=== PATIENT | male | born 1960 | race Hispanic/Latino ===

== ENCOUNTER 2017-12-10 13:24 | Inpatient (IN) | payer BC ==
[2017-12-10 14:30] LABS: #Basophils 0.1 thou/uL (0.0-0.2); #Eosinphils 0.1 thou/uL (0.0-0.7); #Lymphocytes 1.7 thou/uL (1.20-3.40); #Monocytes 0.7 thou/uL (0.11-0.59); #Neutrophils 9.3 thou/uL (1.40-6.50); %Basophils 0.6 % (0.0-1.0); %Eosinophils 1.1 % (0.0-10.0); %Lymphocytes 14.4 % (21.0-51.0); %Monocytes 6.1 % (0.0-10.0); %Neutrophils 77.9 % (42.0-75.0); Hemoglobin 15.2 g/dL (14.0-18.0); Mean Corpuscular HGB CONC 34.2 g/dL (32.0-36.0); Mean Corpuscular Hemoglobin 30.8 pg (27.0-31.0); Mean Corpuscular Volume 90.3 fl (80.0-94.0); Platelet Count 243 thou/uL (130-400); RBC Distribution Width 12.4 % (11.5-14.5); Red Blood Cell (RBC) Count 4.93 mill/uL (4.70-6.10); White Blood Cell (WBC) Count 11.9 thou/uL (4.8-10.8)
[2017-12-10 14:55] LABS: CKMB 3.6 ng/mL (0-6.6); Troponin I 0.234 ng/mL (< 0.028)
[2017-12-10 14:57] LABS: ALT (SGPT) 14 U/L (8-55); AST (SGOT) 14 U/L (5-34); Albumin 4.1 g/dL (3.5-5.0); Alcohol Less than 10 mg/dL (Less than 10); Alkaline Phosphatase 86 U/L (40-150); Anion Gap 15 mmol/L (10-20); BUN (Urea Nitrogen) 19 mg/dL (8.4-25.7); Bilirubin, Total 0.8 mg/dL (0.2-1.2); Calc. Creatinine Clearance 0 mL/min (70-130); Calcium 9.1 mg/dL (7.8-10.44); Carbon Dioxide 20 mmol/L (22-29); Chloride 106 mmol/L (98-107); Estimated GFR-MDRD 69; Globulin 2.8 g/dL (2.4-3.5); Glucose 163 mg/dL (70-105); Protein, Total 6.9 g/dL (6.0-8.3); Sodium 137 mmol/L (136-145)
[2017-12-10] MEDS ORDERED: ISOVUE-370 76%-LOCM 1 ML ONE (15:31)
--- NOTE | 2017-12-10 15:36 | ULT ---
LEFT LOWER EXTREMITY VENOUS DOPPLER: Date: 12-10-17 Provided Clinical History: Left leg edema. FINDINGS: Grayscale and color doppler sonography with spectral analysis was performed of the left common femora l, femoral, popliteal, posterior tibial, greater saphenous, and profunda femoral veins demonstrating a normal sonographic appearance to each. IMPRESSION: No sonographic evidence for left lower extremity deep venous thrombosis. POS: RAYMON
--- NOTE | 2017-12-10 16:06 | CT ---
CT BRAIN: Date: 12-10-17 Provided Clinical History: Syncope. FINDINGS: The ventricular system appears normal in size and morphology. There is no evidence for intracranial h emorrhage or mass effect. There are numerous foci of gas seen within the soft tissues of the right ma sseter and temporalis musculature. Less conspicuous changes are seen involving the left masseter and temporalis musculature as well as within the anterior frontal scalp. Small amount of gas is seen with in the epidural space posterior to the anterior aspect of the foramen magnum. The extracranial soft t issues and osseous structures demonstrate an otherwise unremarkable CT appearance. IMPRESSION: 1. No evidence for intracranial hemorrhage or mass effect. 2. Prominent soft tissue gas involving primarily the right masseter musculature of uncertain etiology and significance. Correlation with a CT of the soft tissues of the neck may be useful for further ev aluation as clinically indicated. POS: RAYMON
[2017-12-10 16:12] LABS: INR-International Normal Ratio 1.1; PTT 28.8 SEC (22.9-36.1); Prothrombin Time 14.4 SEC (12.0-14.7)
--- NOTE | 2017-12-10 16:42 | CT ---
CT PULMONARY ANGIOGRAM WITH IV CONTRAST WITH 3D MIP RECONSTRUCTIONS: Date: 12-10-17 Provided Clinical History: Dyspnea. FINDINGS: There are innumerable filling defects throughout the pulmonary arterial system bilaterally including near occlusive thrombus of the right distal main pulmonary artery. There is associated prominent bone deformity of the intervertebral septum, compatible with elevated pulmonary arterial pressures. The heart, pericardium, great vessel appear otherwise unremarkable. The lungs are free of significant opacity. The aorta appears patent and of normal caliber. No pleural fluid or pneumothorax apparent. The visualized portions of the upper abdomen demonstrate no significant abnormality. Tiny hypodensiti es in the liver are too small to definitely characterize but statistically reflect cysts. The osseous structures demonstrate no concerning lytic or blastic lesions. IMPRESSION: Positive examination for bilateral pulmonary emboli with associated RV strain. Findings communicated to Dr. Ribeiro in the Emergency Department at 3:56 p.m. 12-10-17. Code CR POS: RAYMON
--- NOTE | 2017-12-10 18:01 | PDOC.FPRHP ---
- History of Present Illness Chief Complaint: Passing out History of Present Illness: 57 yo with hx of venous issues in leg and family hx of blood clots who presents SOB after passing out at work. He denies leg pain this week but his L leg is always kind of swollen. He was feeling normal and then he passed out. after coming to, he felt SOB. denies chest pain or facial pain. no back pain. no palpitations. ED Course: recieved TPA after CTA with R heart strain. - Allergies/Adverse Reactions Allergies Allergy/AdvReac Type Severity Reaction Status Date / Time No Known Allergies Allergy Unverified 12/10/17 18:43 - Home Medications Medication Instructions Recorded Confirmed Type No Known [No Known] 12/10/17 12/10/17 History - History PMHx: Venous insufficiency, especially in L leg PSHx: Venous procedure to L leg. Otherwise patient not sure why it was done FHx: aunt of PE, had multiple clotting events. Patient: current smoker for 20 years, denies etoh and recreational drugs. - Review of Systems General: denies: fever/chills, weight/appetite/sleep changes, night sweats Eyes: denies: eye pain, vision changes ENT: denies: nasal congestion, rhinorrhea Respiratory: reports: shortness of breath, exercise intolerance. denies: cough , congestion Cardiovascular: denies: chest pain, palpitation, edema, paroxysmal nocturnal dyspnea Gastrointestinal: denies: nausea, vomiting, diarrhea, constipation Genitourinary: denies: incontinence, dysuria Skin: denies: rashes, lesions, jaundice Musculoskeletal: denies: pain, tenderness Neurological: reports: syncope. denies: numbness, seizure Psychological: denies: anxiety, depression - Vital signs BP: 134/86 HR: 95 RR: 28 Tmax: 98.6 Pox: 96% on 3L Wt: 122kg - Physical Exam Constitutional: NAD, awake, alert and oriented, well developed HEENT: normocephalic and atraumatic, PERRLA, EOMI, conjunctiva clear, no scleral icterus, grossly normal vision, grossly normal hearing, oropharynx clear , good dention -HEENT: No pain or tenderness around face or with movements. Neck: supple, FROM Chest: no-tender to palpation Heart: RRR, normal S1/S2, no murmurs/rubs/gallops Lungs: CTAB, no respiratory distress, good air movement, no rales/rhonchi, no wheezing, no retractions -Lungs: Mild increased WOB, tachypnea Abdomen: soft, non-tender Musculoskeletal: normal structure, normal tone Neurological: no focal deficit, CN II-XII intact Skin: no rash/lesions, good turgor Heme/Lymphatic: no unusual bruising or bleeding, no purpura Psychiatric: normal mood and affect, good judgment and insight FMR H&P: Results - Labs Result Diagrams: 12/10/17 14:23 12/10/17 14:23 Lab results: WBC 11.9 thou/uL (4.8-10.8) H 12/10/17 14:23 Hgb 15.2 g/dL (14.0-18.0) 12/10/17 14:23 Hct 44.5 % (42.0-52.0) 12/10/17 14:23 MCV 90.3 fl (80.0-94.0) 12/10/17 14:23 Plt Count 243 thou/uL (130-400) 12/10/17 14:23 Neutrophils % 77.9 % (42.0-75.0) H 12/10/17 14:23 Sodium 137 mmol/L (136-145) 12/10/17 14:23 Potassium 4.0 mmol/L (3.5-5.1) 12/10/17 14:23 Chloride 106 mmol/L (98-107) 12/10/17 14:23 Carbon Dioxide 20 mmol/L (22-29) L 12/10/17 14:23 BUN 19 mg/dL (8.4-25.7) 12/10/17 14:23 Creatinine 1.10 mg/dL (0.6-1.3) 12/10/17 14:23 Glucose 163 mg/dL (70-105) H 12/10/17 14:23 Calcium 9.1 mg/dL (7.8-10.44) 12/10/17 14:23 Total Bilirubin 0.8 mg/dL (0.2-1.2) 12/10/17 14:23 AST 14 U/L (5-34) 12/10/17 14:23 ALT 14 U/L (8-55) 12/10/17 14:23 Alkaline Phosphatase 86 U/L (40-150) 12/10/17 14:23 CK-MB (CK-2) 3.6 ng/mL (0-6.6) 12/10/17 14:23 Serum Total Protein 6.9 g/dL (6.0-8.3) 12/10/17 14:23 Albumin 4.1 g/dL (3.5-5.0) 12/10/17 14:23 Laboratory Tests 12/10/17 12/10/17 14:23 16:46 Troponin I 0.234 H 0.330 H* - EKG Interpretation EKG: NSR. non specific T wave changes in V1-2. No ST elevations or depressions - Radiology Interpretation CT scan - chest Status: image reviewed by me, report reviewed by me Additional comment: Bilateral PE, no pneumothorax CT scan - head Status: image reviewed by me, report reviewed by me Additional comment: NAD, but R sided masseter gas in muscle US - venous Status: report reviewed by me Additional comment: L leg negative for DVT FMR H&P: A/P - Problem List (1) Bilateral pulmonary embolism Current Visit: Yes Status: Acute Priority: High Code(s): I26.99 - OTHER PULMONARY EMBOLISM WITHOUT ACUTE COR PULMONALE (2) Right heart failure Current Visit: Yes Status: Suspected Qualifiers: Heart failure chronicity: acute Qualified Code(s): I50.811 - Acute right heart failure (3) Received intravenous tissue plasminogen activator (t-PA) in emergency department Current Visit: Yes Status: Acute Code(s): Z92.82 - S/P ADMN TPA IN DIFF FAC W/N LAST 24 HR BEF ADM TO CRNT FAC - Plan 1. Bilateral Proximal PE causing R heart strain- Patient did not become hypotensive but because of R heart strain, TPA was administered and protocol put in place. Patient has done well since and vitals have improved 2/2 to treatment. Will continue supportive care until 24 hours after TPA was given, then we will initiate anticoagulation. Left extremity doppler negative. Will order Right. 2. R heart strain- causing indeterminate troponins. Because of TPA, blood draws are relative contraindication and all clinical signs point to PE rather than ACS. Will repeat after 24 hours has stopped. Also will order ECHO 3. Family hx of blood clots- once we can draw labs again, will work up for inherited coagulopathies. 4. tobacco abuse- will funeral prearrangement counselor to quit. Disposition/LOS: LOS estimated 4 days. CCU Attending Addendum - Attending Addendum Date/Time: 12/10/172037 I personally evaluated the patient and discussed the management with Dr. Chacon at time of admission. I agree with the History, Examination, Assessment and Plan documented above with any addition or exceptions noted below. Patient is stable in CCU. HR is now normal. Air is masseter is unusual. Masseters nontender, no erythema or induration. Etiology unclear. Will follow clinically.
[2017-12-10 18:46] VITALS: BMI 41.2
[2017-12-10] MEDS ORDERED: Ondansetron ODT 4 MG TAB SL PRN (18:47)
[2017-12-10] MEDS ORDERED: Ondansetron HCl/PF 4 MG/2 ML Vial IVP PRN (18:47)
[2017-12-10] MEDS: Sodium Chloride 0.9% 1,000 ML IV SCH (19:47)
--- NOTE | 2017-12-10 22:35 | CON ---
DATE OF CONSULTATION: 12/10/2017 SERVICE: Pulmonary medicine. REASON FOR CONSULT: Pulmonary embolism. HISTORY OF PRESENT ILLNESS: Patient is a 57-year-old white male with past medical history significant for nothing. He was in his usual state of health until yesterday. He started feeling a little bit off. Otherwise, he continued on his day. At work today at 1:00, he abruptly felt short of breath, and developed some pleuritic chest discomfort. He was getting lightheaded. This was progressive very abruptly. As such, he presented to the emergency department. CT of the chest demonstrated a large pulmonary embolism. There were signs of right-heart strain. The patient was having marginal blood pressures and was threatening to syncopize. As such, the decision was made to give him tPA, after we excluded the possibility of contraindications. PAST MEDICAL HISTORY: 1. Chronic venous insufficiency. 2. Pulmonary embolism. PAST SURGICAL HISTORY: Vein procedure to the left leg. FAMILY HISTORY: Noncontributory. SOCIAL HISTORY: He smokes a pack a day and has done so far over 20 years. He denies any alcohol or illicit drug use. He has no exposure to chemicals, dust, asbestos, or tuberculosis. He has lost 30 pounds over the past year by walking 30 minutes on a daily basis. This has been a steady decline in weight. ALLERGIES: No known drug allergies. MEDICATIONS: List of his inpatient medications were reviewed. No specific updates were made at this time. REVIEW OF SYSTEMS: General, head, ears, eyes, nose, throat, cardiovascular, respiratory, GI, , musculoskeletal, neurologic, and skin is negative except as mentioned in the HPI. PHYSICAL EXAMINATION: VITAL SIGNS: Afebrile, pulse 74, blood pressure 140/88, respirations 20, saturation 100% now on room air. GENERAL: Patient is awake and alert, no apparent distress. LUNGS: Decent air entry bilaterally with no prolonged expiratory phase. HEART: Normal rate, regular. ABDOMEN: Soft, nontender, nondistended. Bowel sounds positive. MUSCULOSKELETAL: No cyanosis or clubbing. No pitting in the bilateral lower extremities. NEUROLOGIC: Grossly nonfocal. LABORATORY DATA: WBC 11.9, hemoglobin 15.2, platelets 243,000. INR 1.1. D- dimer 5.8. Troponin 0.48 and gently up trending. Basic metabolic profile and liver function studies are unremarkable otherwise. Plasma alcohol is below 10. IMAGIN. CTA of the chest demonstrates impressive pulmonary embolism. Pleural thickening of the right lung. There is reflux of contrast into the inferior vena cava. The right ventricle is dilated as is the right atrium. The left ventricle appears to be underfilled. 2. Ultrasound of bilateral lower extremities demonstrates no evidence for DVT. 3. CT of the brain demonstrates no acute intracranial abnormality. ASSESSMENT: 1. Acute submassive pulmonary embolism. 2. Right ventricular heart strain. 3. Non-ST elevation myocardial infarction secondary to pulmonary embolism. 4. Acute hypoxic respiratory failure, resolved. 5. Obstructive sleep apnea, strongly suspected. PLAN: The patient has already received his tPA and is feeling much improved. As such, I will start him on anticoagulation in 6 hours. The first thing would be Lovenox. If he does well through the night, we can consider switching over to direct oral anticoagulant. I would certainly like for him to follow up with me in clinic in the outpatient setting, so that we can get him enrolled or get him scheduled for an outpatient polysomnogram. 70 minutes have been devoted to this patient in various activities. I personally reviewed all imaging studies and laboratory data noted within this document. For fifty percent of this time, I was interacting with the patient at the bedside or coordinating care with the care team. For the remainder of the time I was immediately available to the patient in the hospital unit. MICHELE
[2017-12-10] MEDS ORDERED: Enoxaparin Sodium 120 MG/0.8 ML SYRINGE SC SCH (23:00)
[2017-12-11 01:59] LABS: #Eosinphils 0.2 thou/uL (0.0-0.7); #Lymphocytes 2.5 thou/uL (1.20-3.40); #Monocytes 0.9 thou/uL (0.11-0.59); #Neutrophils 6.3 thou/uL (1.40-6.50); %Basophils 0.4 % (0.0-1.0); %Eosinophils 2.4 % (0.0-10.0); %Lymphocytes 25.2 % (21.0-51.0); %Monocytes 8.6 % (0.0-10.0); %Neutrophils 63.4 % (42.0-75.0); Hemoglobin 13.7 g/dL (14.0-18.0); Mean Corpuscular HGB CONC 34.7 g/dL (32.0-36.0); Mean Corpuscular Hemoglobin 31.4 pg (27.0-31.0); Mean Corpuscular Volume 90.5 fl (80.0-94.0); Mean Platelet Volume 7.1 fL (7.4-10.4); Platelet Count 195 thou/uL (130-400); RBC Distribution Width 12.3 % (11.5-14.5); Red Blood Cell (RBC) Count 4.35 mill/uL (4.70-6.10); White Blood Cell (WBC) Count 9.9 thou/uL (4.8-10.8)
[2017-12-11 02:28] LABS: Troponin I 0.389 ng/mL (< 0.028)
[2017-12-11 02:52] LABS: Anion Gap 12 mmol/L (10-20); BUN (Urea Nitrogen) 19 mg/dL (8.4-25.7); Calc. Creatinine Clearance 173 mL/min (70-130); Calcium 8.7 mg/dL (7.8-10.44); Carbon Dioxide 22 mmol/L (22-29); Cardiac Risk 4.1 (Less than 4.5); Chloride 110 mmol/L (98-107); Cholesterol 149 mg/dl (< 200 Desired); Estimated GFR-MDRD Greater than 90; Glucose 97 mg/dL (70-105); HDL Cholesterol 36 mg/dL (>60 Neg Risk); LDL Cholesterol, Calculated 94 mg/dL; Potassium 3.8 mmol/L (3.5-5.1); Sodium 140 mmol/L (136-145); Triglycerides 93 mg/dL (Less than 150)
--- NOTE | 2017-12-11 06:25 | PDOC.FM ---
- Subjective Subjective: Pt denies SOB or discomfort. De-sats at night. Did receive lovenox last night. + RLE DVT. also states he rode [place] Monday most of the day because it was free and said his aunt at an old age from a blood clot. - Objective Vital Signs & Weight: Vital Signs (12 hours) Temp Pulse Resp Pulse Ox 12/11/17 05:25 97.8 F 12/11/17 04:00 98.1 F 12/11/17 00:00 98.3 F 12/10/17 20:00 98.4 F 73 15 100 12/10/17 19:00 98.4 F 12/10/17 18:41 100 Weight Admit Weight 120 kg Weight 123 kg Most Recent Monitor Data Heart Rate from ECG 69 NIBP 114/82 NIBP BP-Mean 92 Respiration from ECG 25 SpO2 100 I&O: 12/09/17 12/10/17 12/11/17 06:59 06:59 06:59 Intake Total 1083 Output Total 850 Balance 233 Result Diagrams: 12/11/17 01:45 12/11/17 01:45 <Kameron Martinez - Last Filed: 12/11/17 08:49> - Objective Vital Signs & Weight: Vital Signs (12 hours) Temp Pulse Resp Pulse Ox 12/11/17 08:00 97.6 F 12/11/17 07:14 97.6 F 78 21 H 97 12/11/17 05:25 97.8 F 12/11/17 04:00 98.1 F 12/11/17 00:00 98.3 F Weight Admit Weight 120 kg Weight 123 kg Most Recent Monitor Data Heart Rate from ECG 69 NIBP 132/88 NIBP BP-Mean 117 Respiration from ECG 22 SpO2 100 I&O: 12/10/17 12/11/17 12/12/17 06:59 06:59 06:59 Intake Total 1083 225 Output Total 850 50 Balance 233 175 Result Diagrams: 12/11/17 01:45 12/11/17 01:45 <Jacque Recinos - Last Filed: 12/11/17 11:21> Phys Exam - Physical Examination Constitutional: NAD HEENT: PERRLA, moist MMs Neck: no nodes, no JVD Respiratory: no wheezing, no rales, no rhonchi Cardiovascular: RRR, no significant murmur, no rub Gastrointestinal: soft, non-tender, no distention Musculoskeletal: pulses present, edema present nonpiting edema. Psychiatric: normal affect <Kameron Martinez - Last Filed: 12/11/17 08:49> Dx/Plan (1) CINDY (obstructive sleep apnea) Code(s): G47.33 - OBSTRUCTIVE SLEEP APNEA (ADULT) (PEDIATRIC) Status: Acute (2) Bilateral pulmonary embolism Code(s): I26.99 - OTHER PULMONARY EMBOLISM WITHOUT ACUTE COR PULMONALE Status : Acute (3) Received intravenous tissue plasminogen activator (t-PA) in emergency department Code(s): Z92.82 - S/P ADMN TPA IN DIFF FAC W/N LAST 24 HR BEF ADM TO CRNT FAC Status: Acute (4) Right heart failure Status: Suspected QualifierTitle: Heart failure chronicity: acute Qualified Code(s): I50.811 - Acute right heart failure - Plan Plan: 1. Bilateral Submassive PE- S/P TPA administration. Lovenox given at 2300 last night, will transition to DOAC today. RLE DVT confirmed with US. Pulm following. 2. R heart strain- likely causing indeterminate troponins. ECHO pending. Waiting for labs 2/2 tpa administration. 3. NSTEMI- likely elevated troponins 2/2 heart strain; pt is on therapeutic lovenox 4. Family hx of blood clots- Aunt. Consider work up for inherited coagulopathies outpatient. 5. Tobacco abuse- counseled to quit. 6) CINDY - needs outpatient eval, but desaturations noted at night with snoring. f /u with Dr Vo. <Kameron Martinez - Last Filed: 12/11/17 08:49> Attending Addendum - Attending Addendum Date/Time: 12/11/17 1119 I personally evaluated the patient and discussed the management with Dr. Martinez on 12/11/17. I agree with the History, Examination, Assessment and Plan documented above with any addition or exceptions noted below. Patient hemodynamically stable today, off oxygen and sitting up next to the bed. No obvious trigger or source for PE/DVT noted. Switch to oral anticoagulation today and transfer out of ICU. <Jacque Recinos - Last Filed: 12/11/17 11:21>
--- NOTE | 2017-12-11 08:01 | ULT ---
DOPPLER VENOUS ULTRASOUND OF THE RIGHT LOWER EXTREMITY: INDICATION: Rule out DVT. History of positive bilateral PE found on a CTA dated 12/10/17. TECHNIQUE: Baker scale, color Doppler, and vascular duplex with spectral analysis was performed of the deep venou s structures of right lower extremity. The common femoral vein, superficial femoral vein, popliteal v ein, posterior tibial vein, proximal greater saphenous, and proximal profunda veins were assessed sandeep aterally. FINDINGS: There is partially occlusive thrombus seen within the distal right femoral vein, right popliteal vein , and proximal to mid right posterior tibial vein. The remaining deep venous segments demonstrate no rmal compression, flow, and augmentation. IMPRESSION: Partially occlusive thrombus seen within the distal right femoral vein, right popliteal vein, and pro ximal to mid right posterior tibial vein. POS: RAYMON
[2017-12-11] MEDS: Sodium Chloride 0.9% 1,000 ML IV SCH ×2 (08:02→23:20)
--- NOTE | 2017-12-11 11:39 | PRG ---
DATE OF SERVICE: 12/11/2017 SERVICE: Pulmonary Medicine INTERVAL HISTORY: The patient is doing really well from a respiratory standpoint. He is on room air . Last night, he had intermittent desaturation, consistent with sleep apnea. Otherwise, there were no events. He denies any chest pain, fevers, chills, nausea or vomiting. PHYSICAL EXAMINATION: VITAL SIGNS: Afebrile, pulse 69, blood pressure 132/88, respirations 22, saturation 100% on room air . GENERAL: The patient is awake, alert, no apparent distress. LUNGS: Excellent air entry bilaterally without prolonged expiratory phase, wheezing, rhonchi, or wood scrap handler ckles present. HEART: Normal rate, regular. ABDOMEN: Soft, nontender, nondistended. Bowel sounds are positive. MUSCULOSKELETAL: No cyanosis or clubbing. There is trace pitting in the bilateral lower extremities . GENITOURINARY: No Mckenna. NEUROLOGIC: Grossly nonfocal. LABORATORY DATA: WBC 9.9, hemoglobin 13.7, platelets 195,000. INR 1.1. Basic metabolic profile is unremarkable. Troponin is down trending. Plasma alcohol is less than 10. IMAGING: Ultrasound of bilateral lower extremities demonstrates evidence of a right-sided DVT. ASSESSMENT: 1. Submassive pulmonary embolism, status post t-PA. 2. Right ventricular heart strain, resolved. 3. Non-ST elevation myocardial infarction secondary to pulmonary embolism, improving. 4. Acute hypoxic respiratory failure, resolved. 5. Obstructive sleep apnea, suspected, and witnessed at bedside. PLAN: The patient is doing absolutely fantastic from a respiratory per perspective. We can convert him over to an oral anticoagulant. He will need to be on Xarelto 15 mg twice daily for 21 days. Aft er that, he will drop to 20 mg once daily. I will have him return to clinic to see me in 2-3 weeks i n the outpatient setting, so that we can arrange for him to undergo a polysomnogram. Pulmonary Crit ical Care will continue to follow along for the time being. Truth be told, there are no respiratory barriers to discharge from the hospital.
[2017-12-11] MEDS ORDERED: Rivaroxaban 15 MG TAB PO SCH (12:00)
[2017-12-11] MEDS: Rivaroxaban 15 MG TAB PO SCH (21:32)
[2017-12-11] MEDS ORDERED: Apixaban 5 MG TAB PO SCH (22:28)
[2017-12-12 06:39] LABS: #Basophils 0.1 thou/uL (0.0-0.2); #Eosinphils 0.3 thou/uL (0.0-0.7); #Lymphocytes 1.9 thou/uL (1.20-3.40); #Neutrophils 7.4 thou/uL (1.40-6.50); %Basophils 0.5 % (0.0-1.0); %Eosinophils 2.5 % (0.0-10.0); %Neutrophils 70.1 % (42.0-75.0); Hemoglobin 13.7 g/dL (14.0-18.0); Mean Corpuscular HGB CONC 34.1 g/dL (32.0-36.0); Mean Corpuscular Hemoglobin 31.1 pg (27.0-31.0); Mean Corpuscular Volume 91.3 fl (80.0-94.0); Mean Platelet Volume 7.4 fL (7.4-10.4); Platelet Count 204 thou/uL (130-400); RBC Distribution Width 12.2 % (11.5-14.5); Red Blood Cell (RBC) Count 4.39 mill/uL (4.70-6.10); White Blood Cell (WBC) Count 10.6 thou/uL (4.8-10.8)
[2017-12-12 06:54] LABS: Anion Gap 13 mmol/L (10-20); BUN (Urea Nitrogen) 12 mg/dL (8.4-25.7); Calc. Creatinine Clearance 177 mL/min (70-130); Calcium 8.7 mg/dL (7.8-10.44); Carbon Dioxide 20 mmol/L (22-29); Chloride 108 mmol/L (98-107); Estimated GFR-MDRD Greater than 90; Glucose 95 mg/dL (70-105); Sodium 137 mmol/L (136-145)
[2017-12-12] MEDS: Rivaroxaban 15 MG TAB PO SCH (08:15)
--- NOTE | 2017-12-12 09:12 | PDOC.FM ---
- Subjective Subjective: Pt feels better today. Slept well. Urinating normally. On RA. No CP. - Objective Vital Signs & Weight: Vital Signs (12 hours) Temp Pulse Resp BP BP Pulse Ox 12/12/17 07:40 97.8 F 76 20 137/95 H 96 12/12/17 04:00 97.6 F 78 16 118/74 97 12/12/17 03:08 95 12/11/17 23:37 98.3 F 79 20 122/77 95 12/11/17 22:00 98.3 F 79 20 Weight Admit Weight 120 kg Weight 123 kg Most Recent Monitor Data Heart Rate from ECG 89 NIBP 122/83 NIBP BP-Mean 94 Respiration from ECG 23 SpO2 100 I&O: 12/11/17 12/12/17 12/13/17 06:59 06:59 06:59 Intake Total 1083 2764 Output Total 850 1075 Balance 233 1689 Result Diagrams: 12/12/17 06:11 12/12/17 06:11 <Kameron Martinez - Last Filed: 12/12/17 09:08> - Objective Vital Signs & Weight: Weight Admit Weight 120 kg Weight 123 kg Most Recent Monitor Data Heart Rate from ECG 89 NIBP 122/83 NIBP BP-Mean 94 Respiration from ECG 23 SpO2 100 I&O: 12/12/17 12/13/17 12/14/17 06:59 06:59 06:59 Intake Total 2764 Output Total 1075 750 Balance 1689 -750 Result Diagrams: 12/12/17 06:11 12/12/17 06:11 <Jacque Recinos - Last Filed: 12/13/17 07:31> Phys Exam - Physical Examination HEENT: PERRLA, moist MMs, sclera anicteric Neck: no nodes, no JVD, supple Respiratory: no wheezing, no rales, no rhonchi Cardiovascular: RRR, no significant murmur, no rub Gastrointestinal: soft, non-tender, no distention Musculoskeletal: no edema, pulses present Neurological: non-focal, normal sensation, moves all 4 limbs Psychiatric: normal affect, A&O x 3 Skin: no rash, normal turgor <Kameron Martinez - Last Filed: 12/12/17 09:08> Dx/Plan (1) CINDY (obstructive sleep apnea) Code(s): G47.33 - OBSTRUCTIVE SLEEP APNEA (ADULT) (PEDIATRIC) Status: Chronic (2) Bilateral pulmonary embolism Code(s): I26.99 - OTHER PULMONARY EMBOLISM WITHOUT ACUTE COR PULMONALE Status : Acute (3) Received intravenous tissue plasminogen activator (t-PA) in emergency department Code(s): Z92.82 - S/P ADMN TPA IN DIFF FAC W/N LAST 24 HR BEF ADM TO CRNT FAC Status: Acute (4) Right heart failure Status: Resolved QualifierTitle: Heart failure chronicity: acute Qualified Code(s): I50.811 - Acute right heart failure - Plan Plan: 1. Bilateral Submassive PE- S/P TPA administration in ED. Xarelto started yesterday and will continue at least 9 months. RLE DVT confirmed with US. Pulm following. 2. R heart strain- resolved. Trops downtrending. ECHO result pending. 3. NSTEMI- likely elevated troponins 2/2 heart strain that are downtrending 4. Family hx of blood clots- Aunt. Consider work up for inherited coagulopathies outpatient. 5. Tobacco abuse- counseled to quit. 6) CINDY - needs outpatient eval, but desaturations noted at night with snoring. f /u with Dr Vo. <Kameron Martinez - Last Filed: 12/12/17 09:08> Attending Addendum - Attending Addendum I personally evaluated the patient and discussed the management with Dr. Martinez on 12/12/17. I agree with the History, Examination, Assessment and Plan documented above with any addition or exceptions noted below. Patient back to baseline. VSS. Discharge home today on Eliquelisa, follow up with Dr. Vo. <Jacque Recinos - Last Filed: 12/13/17 07:31>
[2017-12-12 12:47] VITALS: BP 129/85; TEMP 98.4
--- NOTE | 2017-12-12 23:47 | DIS-2 ---
DATE OF ADMISSION: 12/10/2017 DATE OF DISCHARGE: 12/12/2017 RESIDENT: Kameron Martinez D.O. ADMITTING ATTENDING: Paul Plaza M.D. DISCHARGE ATTENDING: Jacque Recinos D.O. CONSULTATIONS: Dr. Vo with Pulmonary Medicine. PROCEDURES: The patient was given TPA. PRIMARY DIAGNOSIS: Bilateral submassive pulmonary embolism. SECONDARY DIAGNOSES: Right lower extremity deep vein thrombosis and also obstructive sleep apnea. DISCHARGE MEDICATIONS: The patient was started on Eliquis 10 mg b.i.d. for 6 additional days; then 5 mg b.i.d. There are no other medications. HOSPITAL COURSE: The patient is a 57-year-old male who presented to the ED after syncopal episode an d shortness of breath, bilateral pulmonary embolism was found on CT scan. He was given TPA, which dr astically and immediately improved his shortness of breath and pulmonary symptoms. He was initially started on Lovenox, then transitioned to one day of Xarelto. With his insurance, Eliquis is a much b janet fit so he was discharged on Eliquis. Dr. Byron Vo followed the patient throughout his spital stay and he will follow up with Dr. Vo as an outpatient. The patient was on room air wit hout any symptoms at the end of his hospital stay. He also needs to follow up with his primary care doctor. DISPOSITION: Stable. DISCHARGE INSTRUCTIONS: 1. Location: Home. 2. Diet: Regular. 3. Activity: As tolerated. 4. Followup: As I said with Dr. Byron Vo and his primary care doctor.
--- NOTE | 2017-12-13 11:02 | PQF ---
PENNIE MCDONOUGHEDDY [id number] CLINICAL DOCUMENTATION CLARIFICATION FORM: POST DISCHARGE Addendum to original discharge summary date: 12/12/2017 DATE: 12/12/2017 ATTN: Dr. Recinos Please exercise your independent, professional judgment in responding to the clarification form. Clinical indicators are provided on the bottom of this form for your review Please check appropriate box(s) to clarify if the following diagnosis has been ruled in or ruled out: NSTEMI Acute Right Heart Failure [ x ] NSTEMI Ruled in diagnosis [ ] Continue to treat [ x ] Resolved [ ] Ruled out diagnosis [ ] Cannot rule out diagnosis [ x] Other diagnosis (please specify) - caused by pulmonary emoblism, resolved with treatment of PE [ ] Unable to determine In addition, please specify: Present on Admission (POA): [ ] Yes [ ] No [ ] Unable to determine [ x ] Acute Right Heart Failure Ruled in Diagnosis [ ] Continue to treat [ x ] Resolved [ ] Ruled out diagnosis [ ] Cannot rule out diagnosis [ x] Other diagnosis (please specify) - pulmonary embolism, resolved with treatment of PE [ ] Unable to determine In addition, please specify: Present on Admission (POA): [ x ] Yes [ ] No [ ] Unable to determine For continuity of documentation, please document condition throughout progress notes and discharge summary. Thank You. CLINICAL INDICATORS - SIGNS / SYMPTOMS / LABS Per H&P: Right heart failure, acute, suspected. Right heart strain causing indeterminate troponins. Per 12/11 progress note: Right heart strain--likely causing indeterminate troponins. NSTEMI--likely elevated troponins 2/2 heart strain. Per 12/12 progress note: Right heart failure, acute, resolved. Right heart strain. NSTEMI--likely elevated troponins 2/2 heart strain that are downtrending. Per 12/10 consult: Right ventricular heart strain. Non-ST elevation myocardial infarction secondary to pulmonary embolism. Per 12/11 pulmonary medicine progress note: Right ventricular heart strain, resolved. Non-ST elevation myocardial infarction secondary to pulmonary embolism, improving. No mention of either on discharge summary. RISK FACTORS (per H&P/progress notes) Bilateral pulmonary embolism. TREATMENTS (per progress notes) TPA. Lovenox. Xarelto. (This form is maintained as a part of the permanent medical record) 2014 [employer]. All Rights Reserved Charito [email or web address] [phone] [email or web address]
== END 2017-12-12 14:42 | disposition home or self-care (01) | DRG 175 ==
LOC: ERS 13:24 → CCU 16:55 → ONC 12-11 21:56 → SURG B 12-12 11:15 → SURG A 12-12 11:17
PROVIDERS: ADMIT Family Medicine; ATTEND Family Medicine
DX: I26.99 Other pulmonary embolism without acute cor pulmonale (principal); J96.01 Acute respiratory failure with hypoxia; I21.4 Non-ST elevation (NSTEMI) myocardial infarction; I82.4Z1 Acute embolism and thrombosis of unspecified deep veins of right distal lower extremity; I50.811 Acute right heart failure; G47.33 Obstructive sleep apnea (adult) (pediatric); F17.210 Nicotine dependence, cigarettes, uncomplicated
CPT/HCPCS: 36415; 70450; 71275; 80048; 80053; 80061; 80307; 82553; 84484; 85025; 85379; 85610; 85730; 93005; 93306; 96361; 96365; 96376; 99292; 99406; J1650; J2997